=== PATIENT | male | born 1995 | race Caucasian/White ===

== ENCOUNTER 2020-03-03 11:16 | Emergency (ER) | payer OTHER ==
[~2020-03-03] VITALS: Ht 177.8 cm; Wt 70.3 kg
[2020-03-03 11:45] VITALS: BP 127/84
[2020-03-03] MEDS ORDERED: Tetanus/Diptheria/Pertussis IM ONE (12:15)
--- NOTE | 2020-03-03 13:00 | Emergency Room Report ---
History of Present Illness General Chief Complaint: Laceration Source: Patient Present Illness HPI 24-year-old male with no signal hospitalist history with the current status of positive Covid here due to a laceration to left palm that happened earlier this morning. Patient reported he was cutting some vegetables and accidentally cut his hand and did not want to come evaluate however noticed a deep cut on the hyperthenar side of left palm. Is not up-to-date with tetanus shot. Has full range of motion of the affected side, full strength is noted, is neurovascularly intact. At this time I do not suspect any tendon injury. Patient was placed in isolation room, I wore full PPE and repaired the laceration. Denies fever chills. Allergies: Coded Allergies: No Known Allergies (Unverified , 03/03/20) COVID-19 Screening Contact w/high risk pt: No Experienced COVID-19 symptoms?: Yes COVID-19 Testing performed RECRUITING OPERATIONS CONSULTANT: Yes COVID-19 Screening: Positive COVID-19 COVID-19 Testing Source: RECRUITING OPERATIONS CONSULTANT Patient History Past Medical History: see triage record Past Surgical History: none Pertinent Family History: none Immunizations: other - Tdap today Reviewed Nursing Documentation: PMH: Agreed; PSxH: Agreed Nursing Documentation-PMH Past Medical History: No Stated History Review of Systems All Other Systems: negative except mentioned in HPI Physical Exam Vital Signs Date Time Temp Pulse Resp B/P (MAP) Pulse Ox O2 Delivery O2 Flow Rate FiO2 03/03/20 11:20 97.9 84 18 127/84 (98) 97 Room Air Sp02 EP Interpretation: reviewed, normal General Appearance: no apparent distress, alert, GCS 15, non-toxic Head: normocephalic, atraumatic Eyes: bilateral eye normal inspection, bilateral eye PERRL ENT: hearing grossly normal, normal pharynx, no angioedema, normal voice Neck: full range of motion, supple/symm/no masses Respiratory: chest non-tender, lungs clear, normal breath sounds, speaking full sentences Cardiovascular #1: regular rate, rhythm, no edema Cardiovascular #2: 2+ radial (R), 2+ radial (L) Gastrointestinal: soft Rectal: deferred Musculoskeletal: back normal, other - Neurovascularly intact Neurologic: alert, motor strength/tone normal, oriented x3, sensory intact, responsive, speech normal Psychiatric: judgement/insight normal, memory normal, mood/affect normal, no suicidal/homicidal ideation Reflexes: 3+ bicep (R), 3+ bicep (L), 3+ tricep (R), 3+ tricep (L), 3+ knee (R), 3+ knee (L) Skin: laceration - 1 cm laceration to the dermis left palm Lymphatic: no adenopathy Procedures Laceration/Wound Repair Laceration/Wound Repair : Consent: Verbal Wound Location: upper extremity - left palm Wound's Depth, Shape: superficial Wound Length (cm): 1 Wound Explored: clean Betadine Prep?: Yes Anesthesia: 1% Lidocaine Volume Anesthetic (ccs): 7 Wound Repaired With: sutures Suture Size/Type: 4:0, proline Number of Sutures: 9 Layer Closure?: Yes Sterile Dressing Applied?: Yes Splint Applied?: Yes Type of Splint Applied: velcro spica Sling Applied?: Yes Patient Tolerated: Well Complications: None Medical Decision Making PA Attestation All my diagnosis and treatment plans were reviewed ad discussed with my supervising physician Dr. 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 Patient reported he was cutting some vegetables and accidentally cut his hand and did not want to come evaluate however noticed a deep cut on the hyperthenar side of left palm. Is not up-to-date with tetanus shot. Has full range of motion of the affected side, full strength is noted, is neurovascularly intact. At this time I do not suspect any tendon injury. Patient was placed in isolation room, I wore full PPE and repaired the laceration. Denies fever chills. Ddx considered but are not limited to : Superficial laceration, deep laceration, tendon involvement with laceration, laceration with foreign body Vital signs: are WNL, pt. is afebrile H&PE are most consistent with: Laceration of hand superficial ORDERS: Ibuprofen, Augmentin, hand x-ray, mupirocin ointment ED INTERVENTIONS: Tdap, wound closed, right DISCHARGE: At this time pt. is stable for d/c to home. Will provide printed patient care instructions, and any necessary prescriptions. Care plan and follow up instructions have been discussed with the patient prior to discharge. Take medications directed, sutures to be removed in 7 to 10 days, if worsening symptoms return to the emergency room Other X-Ray Diagnostic Results Other X-Ray Diagnostic Results : X-Ray ordered: left hand # of Views/Limited Vs Complete: 3 View Indication: Pain EP Interpretation: Yes BERTO Xray: Interpretation reviewed, by supervising MD, and agrees with findings. Interpretation: no dislocation, no soft tissue swelling, no fractures Impression: No acute disease Electronically Signed by: Jer Rudd PA-C Last Vital Signs Date Time Temp Pulse Resp B/P (MAP) Pulse Ox O2 Delivery O2 Flow Rate FiO2 03/03/20 11:45 97.9 79 18 127/84 97 Room Air Disposition: HOME, SELF-CARE Condition: Stable Scripts Mupirocin* (MUPIROCIN*) 22 Gm Oint...g. 1 APPLIC TOPIC THREE TIMES A DAY, #22 GM Prov: Jer Lowe 03/03/20 Ibuprofen (Ibu) 800 Mg Tablet 800 MG PO TID, #30 TAB Prov: Jer Lowe 03/03/20 Amoxicillin/Potassium Clav 875-125* (AUGMENTIN 875-125 TABLET*) 1 Each Tablet 1 TAB ORAL TWICE A DAY for 7 Days, #14 TAB Prov: Jer Lowe 03/03/20 Patient Instructions: Laceration Care, Adult Additional Instructions: Take medication as directed, follow-up with primary care provider, if worsening symptoms return to the emergency room Jer Lowe Mar 03, 2020 13:00
[2020-03-03] MEDS ORDERED: IBU800 MG PO (13:01)
[2020-03-03] MEDS ORDERED: AUGMENTIN 875-1 EAC1 ORAL (13:01)
[2020-03-03] MEDS ORDERED: MUPIROCIN22 GM TOPIC (13:01)
[2020-03-03] MEDS ORDERED: Bacitracin Oint UD TOPIC ONE ×2 (13:26→13:30)
[2020-03-03 13:34] VITALS: BP 120/80
--- NOTE | 2020-03-03 16:39 | Diagnostic Imaging Report ---
Indication: Left hand laceration Technique: 3 views left hand Comparison: none Findings: No acute fractures. No dislocations. The joint spaces are preserved. Impression: Negative
== END 2020-03-03 13:34 | disposition home or self-care (01) ==
LOC: EMR 11:45
DX: S61.412A Laceration without foreign body of left hand, initial encounter (principal); U07.1 COVID-19; W26.0XXA Contact with knife, initial encounter; Y93.G3 Activity, cooking and baking; Y92.010 Kitchen of single-family (private) house as the place of occurrence of the external cause
CPT/HCPCS: 90471; 90715; 99283

== ENCOUNTER 2020-03-12 11:59 | Emergency (ER) | payer OTHER ==
[~2020-03-12] VITALS: Ht 177.8 cm; Wt 70.3 kg
[~2020-03-12 11:59] MED LIST: AUGMENTIN 875-1 EAC1 ORAL; IBU800 MG PO; MUPIROCIN22 GM TOPIC
--- NOTE | 2020-03-12 12:20 | NUR ---
ED Nurse Note:pt. came fro sutures removal from left hand
--- NOTE | 2020-03-12 12:45 | NUR ---
ED Nurse Note:sutures removed by ER MD and steri strips applied Pt cleared by health care Provider for discharge. DC instructions was given and explained to pt and verbalized understanding of teachings. All medical deviecs such as ID band removed. Pt is AAO x4, ambulatory and left with all personal belongings.
[2020-03-12 12:47] VITALS: BP 139/82
--- NOTE | 2020-03-15 14:24 | Emergency Room Report ---
History of Present Illness General Chief Complaint: Wound Recheck/Suture Removal Source: Patient Present Illness HPI 24-year-old male presents for suture removal. Had sutures placed in his left hand 10 days ago. Is here to have them removed. States the wound is healing well. Denies pain. States the sutures are intact. Denies any redness or discharge. No other aggravating relieving factors. Denies any other associated symptoms Allergies: Coded Allergies: No Known Allergies (Unverified , 03/03/20) COVID-19 Screening Contact w/high risk pt: No Experienced COVID-19 symptoms?: No COVID-19 Testing performed PLATE STRAIGHTENER: No Patient History Past Medical History: none Past Surgical History: none Pertinent Family History: none Social History: Denies: smoking, alcohol use, drug use Immunizations: UTD Reviewed Nursing Documentation: PMH: Agreed; PSxH: Agreed Nursing Documentation-PMH Past Medical History: No Stated History Review of Systems All Other Systems: negative except mentioned in HPI Physical Exam Vital Signs Date Time Temp Pulse Resp B/P (MAP) Pulse Ox O2 Delivery O2 Flow Rate FiO2 03/12/20 12:06 97.3 86 17 139/82 (101) 99 Room Air Sp02 EP Interpretation: reviewed, normal General Appearance: no apparent distress, alert, GCS 15, non-toxic Head: normocephalic, atraumatic Eyes: bilateral eye normal inspection, bilateral eye PERRL ENT: hearing grossly normal, normal pharynx, no angioedema, normal voice Neck: full range of motion, supple/symm/no masses Respiratory: chest non-tender, lungs clear, normal breath sounds, speaking full sentences Cardiovascular #1: regular rate, rhythm, no edema Cardiovascular #2: 2+ carotid (R), 2+ carotid (L), 2+ radial (R), 2+ radial (L), 2+ dorsalis pedis (R), 2+ dorsalis pedis (L) Gastrointestinal: normal bowel sounds, non tender, soft, non-distended, no guarding, no rebound Rectal: deferred Genitourinary: normal inspection, no CVA tenderness Musculoskeletal: back normal, normal range of motion, gait/station normal, non- tender Neurologic: alert, motor strength/tone normal, oriented x3, sensory intact, responsive, speech normal Psychiatric: judgement/insight normal, memory normal, mood/affect normal, no suicidal/homicidal ideation Reflexes: 3+ bicep (R), 3+ bicep (L), 3+ tricep (R), 3+ tricep (L), 3+ knee (R), 3+ knee (L) Skin: other - sutures in place. no erythema/discharge Lymphatic: no adenopathy Medical Decision Making Diagnostic Impression: Primary Impression: Encounter for removal of sutures ER Course Patient presents to the emergency department today for suture removal. patient's wound appears well-healed, and sutures are ready to be removed today. Using sterile technique the sutures were removed patient tolerated procedure well without any difficulty. Patient was given advice in how to care for the wound patient is advised followup with his private care doctor in 2-3 days and return to emergency room for any worsening conditions as needed Last Vital Signs Date Time Temp Pulse Resp B/P (MAP) Pulse Ox O2 Delivery O2 Flow Rate FiO2 03/12/20 12:47 97.3 57 17 139/82 99 Room Air Status: improved Disposition: HOME, SELF-CARE Condition: Stable Referrals: NOT CHOSEN IPA/,REFERRING (PCP) Patient Instructions: Suture Removal, Care After Jerzy Farrell MD Mar 15, 2020 14:24
== END 2020-03-12 12:45 | disposition home or self-care (01) ==
LOC: EMR 12:40
DX: Z48.02 Encounter for removal of sutures (principal)
CPT/HCPCS: 99281